=== PATIENT | female | born 1985 | race Two or more races ===

== ENCOUNTER 2019-04-13 16:31 | Emergency (ER) | payer SELFPAY ==
[~2019-04-13] VITALS: Ht 167.6 cm; Wt 68.0 kg
[2019-04-13] MEDS ORDERED: IBUPROFEN 600MG TABLET PO ONE (17:45)
[2019-04-13 17:57] VITALS: BP 129/72
== END 2019-04-13 19:03 | disposition home or self-care (01) ==
LOC: ER 16:31
DX: S60.211A Contusion of right wrist, initial encounter (principal); S60.221A Contusion of right hand, initial encounter; W18.39XA Other fall on same level, initial encounter; Y93.89 Activity, other specified; Y92.89 Other specified places as the place of occurrence of the external cause; Y99.8 Other external cause status
CPT/HCPCS: 29125; 73110; 73130; 99283

== ENCOUNTER 2019-09-03 12:01 | Emergency (ER) | payer BC, MEDICAID ==
[~2019-09-03] VITALS: Ht 162.6 cm; Wt 59.0 kg
[2019-09-03] MEDS ORDERED: NAPR-681 PO (12:46)
[2019-09-03] MEDS ORDERED: SODIUM CHLORIDE 0.9% 500 ML IV ONE (18:30)
[2019-09-03] MEDS ORDERED: METOCLOPRAMIDE HCL 10MG/2ML VIAL IV ONE (18:30)
[2019-09-03] MEDS ORDERED: DIPHENHYDRAMINE 50MG/ML VIAL IV ONE (18:30)
[2019-09-04 01:30] VITALS: BP 101/60
== END 2019-09-04 02:03 | disposition home or self-care (01) ==
LOC: ER 12:01
DX: R51 Headache (principal)
CPT/HCPCS: 70450; 81025; 96361; 96374; 96375; 99284; J1200; J2765; J7040

== ENCOUNTER 2020-03-06 20:29 | Emergency (ER) | payer BC, MEDICAID ==
[~2020-03-06] VITALS: Ht 162.6 cm; Wt 60.0 kg
[~2020-03-06 20:29] MED LIST: NAPR-681 PO
[2020-03-06 20:31] VITALS: BP 112/65
[2020-03-06] MEDS ORDERED: ACETAMINOPHEN 325MG TABLET PO ONE (21:00)
[2020-03-06 21:01] LABS: CLARITY URINE CLOUDY (CLEAR); KETONES URINE NEGATIVE (NEGATIVE); LEUKOCYTE ESTERASE URINE TRACE (NEGATIVE); NITRITE URINE NEGATIVE (NEGATIVE); OCCULT BLOOD URINE 3+ (NEGATIVE); PROTEIN URINE 1+ (NEGATIVE); SPECIFIC GRAVITY URINE 1.028 (1.005-1.030)
[2020-03-06 21:02] LABS: COLOR URINE YELLOW (YELLOW)
[2020-03-06 21:25] LABS: CHLORIDE 106 mEq/L (98-107)
[2020-03-06 21:28] LABS: BASOPHILS % 0.5 % (0.0-2.0); EOSINOPHILS % 1.4 % (0.0-5.0); HEMATOCRIT. 36.2 % (36.0-48.0); HEMOGLOBIN. 12.1 g/dL (12.0-16.0); LYMPHOCYTES % 37.8 % (20.0-50.0); MEAN CORPUSCULAR HEMOGLOBIN 30.9 pg (28.0-32.0); MEAN CORPUSCULAR VOLUME 92.2 fL (81.0-99.0); MEAN PLATELET VOLUME 8.9 fl (7.4-10.4); MONOCYTES % 7.8 % (2.0-8.0); NEUTROPHILS % 52.5 % (40.0-76.0); PLATELET 213 x1000/uL (130-400); RED BLOOD CELL COUNT 3.92 mill/uL (4.2-5.4); RED CELL DISTRIBUTION WIDTH 12.5 % (11.6-14.6)
[2020-03-06 21:35] LABS: B-HCG QUANTITATIVE 873 mIU/mL (<3)
== END 2020-03-07 00:03 | disposition home or self-care (01) ==
LOC: ER 20:49
DX: O20.0 Threatened abortion (principal); O26.899 Other specified pregnancy related conditions, unspecified trimester; R22.1 Localized swelling, mass and lump, neck; R10.9 Unspecified abdominal pain; Z3A.00 Weeks of gestation of pregnancy not specified
CPT/HCPCS: 36415; 76801; 80053; 81003; 81025; 84702; 85025; 86850; 86900; 99284

== ENCOUNTER 2020-03-09 13:37 | Emergency (ER) | payer MEDICAID ==
[~2020-03-09] VITALS: Ht 162.6 cm; Wt 60.0 kg
[2020-03-09 14:41] LABS: CLARITY URINE CLOUDY (CLEAR); COLOR URINE YELLOW (YELLOW); KETONES URINE NEGATIVE (NEGATIVE); LEUKOCYTE ESTERASE URINE 1+ (NEGATIVE); NITRITE URINE NEGATIVE (NEGATIVE); OCCULT BLOOD URINE NEGATIVE (NEGATIVE); PROTEIN URINE NEGATIVE (NEGATIVE); SPECIFIC GRAVITY URINE 1.025 (1.005-1.030); UROBILINOGEN URINE 0.2 E.U./dL (0.2-1.0)
[2020-03-09 14:49] LABS: BASOPHILS % 0.2 % (0.0-2.0); EOSINOPHILS % 1.4 % (0.0-5.0); HEMATOCRIT. 34.9 % (36.0-48.0); HEMOGLOBIN. 12.1 g/dL (12.0-16.0); LYMPHOCYTES % 30.1 % (20.0-50.0); MEAN CORPUSCULAR VOLUME 92.7 fL (81.0-99.0); MEAN PLATELET VOLUME 8.7 fl (7.4-10.4); MONOCYTES % 6.7 % (2.0-8.0); NEUTROPHILS % 61.6 % (40.0-76.0); PLATELET 191 x1000/uL (130-400); RED BLOOD CELL COUNT 3.77 mill/uL (4.2-5.4); RED CELL DISTRIBUTION WIDTH 12.7 % (11.6-14.6)
[2020-03-09 14:58] LABS: CHLORIDE 107 mEq/L (98-107)
[2020-03-09 15:08] LABS: B-HCG QUANTITATIVE 565 mIU/mL (<3)
[2020-03-09 17:05] VITALS: BP 121/73
== END 2020-03-09 17:05 | disposition home or self-care (01) ==
LOC: ER 13:37
DX: O20.0 Threatened abortion (principal); Z3A.00 Weeks of gestation of pregnancy not specified
CPT/HCPCS: 36415; 76801; 80053; 81003; 81025; 84702; 85025; 86850; 86900; 93005; 99284